=== PATIENT | male | born 1980 | race American Indian/Alaskan Native ===

== ENCOUNTER 2019-08-01 15:07 | Emergency (ER) | payer SELFPAY ==
[2019-08-01 15:16] VITALS: BP 107/57
--- NOTE | 2019-08-01 15:53 | Emergency Department Report ---
Chief Complaint: Urogenital-Male Stated Complaint: INFECTION, CHEST PAIN Time Seen by Provider: 08/01/19 15:39 - HPI History of Present Illness: This is a 38-year-old male who presents the ED complaining of urinary pain and penile discharge for a week and a half. Patient wanting STD testing or treatment. Patient denies fever/chills/nausea vomiting/abdominal pain/testicular pain swelling or any lesions - ROS Review of Systems: As noted in HPI - Exam Vital Signs: Vital Signs 08/01/19 15:14 Temperature 98.8 F Pulse Rate 69 Respiratory 18 Rate Blood Pressure 107/57 O2 Sat by Pulse 97 Oximetry MSE screening note: Focused history and physical exam performed. Due to findings the following was ordered: ED Medical Decision Making - Medical Decision Making 38-year-old male presents with STD exposure. ED course: Discussed with patient possible STD due to exposure. Referrals with Dr. Valentino given to patient. Discussed the follow-up with the health department for further STD testing. Patient's alert and oriented times 3. Vital signs are normal patient is in no acute discharge. Patient will be discharged home with instructions. ED Disposition for MSE Clinical Impression: Screening for STD (sexually transmitted disease) Disposition: Z- MED SCREENING EXAM-LEFT Is pt being admited?: No Does the pt Need Aspirin: No Condition: Stable Instructions: Sexually Transmitted Diseases (ED), Safe Sex (ED) Additional Instructions: Make sure to follow up with the Dr. suarez or health department clinic as discussed for STD testing and treatment. If you have any worsening symptoms or develop new symptoms please return to ED immediately. Referrals: PRIMARY CAREMD [Primary Care Provider] - 3-5 Days LAURA VALENTINO MD [Staff Physician] - 3-5 Days [facility] [Outside] - 3-5 Days [facility] [Outside] - 3-5 Days Forms: Work/School Release Form(ED) Time of Disposition: 15:51
== END 2019-08-01 16:02 | disposition left against medical advice (07) ==
LOC: ED 15:07
DX: R30.9 Painful micturition, unspecified (principal); R36.9 Urethral discharge, unspecified; Z11.3 Encounter for screening for infections with a predominantly sexual mode of transmission
CPT/HCPCS: 99281